=== PATIENT | male | born 1980 ===

== ENCOUNTER 2021-06-23 15:04 | Outpatient (REF) | payer MEDICAID, SELFPAY ==
[2021-06-23 15:19] LABS: BUN 17 mg/dL (7-18); CREATININE 1.1 mg/dL (0.70-1.30); Calcium 8.9 mg/dL (8.5-10.1); Calculated LDL 119 mg/dL (<100); Chloride 106 mmol/L (98-107); Cholesterol 207 mg/dL (<200); Glucose 94 mg/dL (74-106); HDL Cholesterol 58 mg/dL (40-60); Sodium 144 mmol/L (136-145); Triglyceride 154 mg/dL (<150)
== END 2021-06-23 15:05 | disposition home or self-care (01) ==
LOC: NCHCN 15:04
PROVIDERS: Visit Provider Physician Assistant
DX: Z13.220 Encounter for screening for lipoid disorders (principal); Z13.228 Encounter for screening for other metabolic disorders
CPT/HCPCS: 80048; 80061

== ENCOUNTER 2023-10-18 13:36 | Outpatient (REF) | payer MEDICAID, SELFPAY ==
[2023-10-18 15:09] LABS: HCT 48.4 % (40.0-50.0); HGB 16.4 g/dL (13.5-17.5); MCHC 33.9 % (32.0-36.0); MCV 95 fL (80-95); MPV 10.9 fL (8.0-11.0); Platelet Count 216 10^3/uL (130-400); RBC 5.12 10^6/uL (4.36-5.78); RDW 11.6 % (11.8-14.1); RDW-SD 40.4 fL
[2023-10-18 15:35] LABS: ALT 120 U/L (16-63); AST 40 U/L (15-37); Albumin 4.5 g/dL (3.4-5.0); Alkaline Phosphatase 81 U/L (46-116); Anion Gap 10.8 mmol/L (3-11); BUN 13 mg/dL (7-18); Bilirubin, Total 0.6 mg/dL (0.2-1.0); CO2 27.2 mmol/L (21.0-32.0); Calcium 9.4 mg/dL (8.5-10.1); Chloride 105 mmol/L (98-107); Estimated GFR 95.77 (mL/min/1.73m2); Glucose 85 mg/dL (74-106); Potassium 4.2 mmol/L (3.5-5.1); Sodium 143 mmol/L (136-145); Total Protein 7.5 g/dL (6.4-8.2)
[2023-10-18 15:59] LABS: Hemoglobin A1C 5.5 % (<5.7)
== END 2023-10-18 13:37 | disposition home or self-care (01) ==
LOC: NCHCN 13:36
PROVIDERS: Visit Provider Physician Assistant
DX: Z13.1 Encounter for screening for diabetes mellitus (principal); F39 Unspecified mood [affective] disorder
CPT/HCPCS: 80053; 85027; 83036

== ENCOUNTER 2023-11-22 15:23 | Outpatient (REF) | payer MEDICAID, SELFPAY ==
[2023-11-22 16:16] LABS: ALT 103 U/L (16-63); AST 35 U/L (15-37); Albumin 4.1 g/dL (3.4-5.0); Alkaline Phosphatase 73 U/L (46-116); Bilirubin, Direct 0.2 mg/dL (0.0-0.2); Bilirubin, Total 0.6 mg/dL (0.2-1.0); Total Protein 6.9 g/dL (6.4-8.2)
[2023-11-23 12:07] LABS: Hepatitis A Antibody IgM Negative (Negative); Hepatitis B Core Antibody Negative (Negative); Hepatitis B surface Ag Negative (Negative); Hepatitis C Ab w Rflx HCV PCR Negative (Negative)
== END 2023-11-22 15:24 | disposition home or self-care (01) ==
LOC: NCHCN 15:23
PROVIDERS: Visit Provider Physician Assistant
DX: R74.01 Elevation of levels of liver transaminase levels (principal)
CPT/HCPCS: 80076; 86704; 86709; 86803; 87340

== ENCOUNTER 2024-10-18 09:49 | Outpatient (REF) | payer MEDICAID, SELFPAY ==
[2024-10-18 15:21] LABS: HGB 15.6 g/dL (13.5-17.5); MCH 32.1 pg (27.0-33.0); MCHC 34.7 % (32.0-36.0); MCV 93 fL (80-95); MPV 10.4 fL (8.0-11.0); Platelet Count 192 10^3/uL (130-400); RBC 4.86 10^6/uL (4.36-5.78); RDW 11.8 % (11.8-14.1); RDW-SD 40.3 fL; WBC 5.26 10^3/uL (4.4-10.8)
[2024-10-18 15:51] LABS: ALT 89 U/L (16-63); AST 36 U/L (15-37); Alkaline Phosphatase 79 U/L (46-116); Anion Gap 6.8 mmol/L (3-11); BUN 12 mg/dL (7-18); Bilirubin, Total 0.6 mg/dL (0.2-1.0); CO2 31.2 mmol/L (21.0-32.0); CREATININE 1.1 mg/dL (0.70-1.30); Calcium 9.2 mg/dL (8.5-10.1); Chloride 106 mmol/L (98-107); Estimated GFR 84.89 (mL/min/1.73m2); Glucose 84 mg/dL (74-106); Potassium 3.8 mmol/L (3.5-5.1); Sodium 144 mmol/L (136-145)
== END 2024-10-18 09:50 | disposition home or self-care (01) ==
LOC: NCHCN 09:49
PROVIDERS: Visit Provider Physician Assistant
DX: F39 Unspecified mood [affective] disorder (principal)
CPT/HCPCS: 80053; 85027

== ENCOUNTER 2025-03-12 13:32 | Outpatient (CLI) | payer MEDICAID, SELFPAY | END 2025-03-12 13:33 | disposition home or self-care (01) | LOC: LBO 04-25 13:32 | PROVIDERS: Visit Provider Nurse Practitioner Psychiatric/Mental Health | DX: Z51.81 Encounter for therapeutic drug level monitoring (principal) | CPT/HCPCS: 36415; 80164 ==